=== PATIENT | female | born 1985 | race Caucasian/White ===

== ENCOUNTER 2017-06-25 12:55 | Emergency (ER) | END 2017-06-25 19:17 | disposition home or self-care (01) ==

== ENCOUNTER 2018-06-04 05:04 | Inpatient (IN) | payer MEDICAID ==
[~2018-06-04] VITALS: Ht 149.9 cm; Wt 78.2 kg
[2018-06-04 05:40] VITALS: BP 118/77; PULSE 80; RESP 18; Ht 149.9 cm; Wt 78.2 kg
[2018-06-04] MEDS ORDERED: LACTATED RINGER'S 1,000 ML IV SCH (06:38)
[2018-06-04] MEDS: LACTATED RINGER'S 1,000 ML IV SCH ×2 (06:50→16:48)
[2018-06-04] MEDS ORDERED: MAGNESIUM SULFATE 4 GM/100 ML 100 ML IVPB ONE (07:00)
--- NOTE | 2018-06-04 07:47 | TRIAGE ---
OB Triage Datetime Report Generated by CPN: 06/04/2018 07:47 Datetime: 06/04/2018 07:00 Stage of : OB Triage Labor Evaluation Frequency: x7 Monitor Mode: External Duration (sec)2399: 100-160 Quality: Mild Pattern: Normal: <= 5 Contractions in 10 Minutes Resting Tone [place]: Relaxed Heart Rate FHR Baseline Rate: 135 Monitor Mode: External US FHR Baseline Changes: No Baseline Change Variability: Moderate 6-25 bpm Accelerations: 15X15 Decelerations: None Category: Category I Datetime: 06/04/2018 06:37 Membrane Status: Ruptured Datetime: 06/04/2018 06:35 Stage of : OB Triage Datetime: 06/04/2018 06:28 Vaginal Exam Dilatation (cms): 1.5 Effacement (%): 50 Station: -3 Exam By: MARIE Reed Vaginal Bleeding: None Cervix, Consistency: Firm Cervix, Position: Posterior Datetime: 06/04/2018 06:00 Stage of : OB Triage Labor Evaluation Frequency: x3 Monitor Mode: External Duration (sec)2399: 110-190 Quality: Mild Pattern: Normal: <= 5 Contractions in 10 Minutes Resting Tone [place]: Relaxed Heart Rate FHR Baseline Rate: 135 Monitor Mode: External US Variability: Moderate 6-25 bpm Accelerations: 15X15 Decelerations: None Category: Category I Datetime: 06/04/2018 05:36 Stage of : OB Triage Assessment Type: Triage Maternal Assessment Level of Consciousness: Fully Conscious DTR's/Clonus: DTRs 2+; No Clonus Headache: Denies Blurred Vision: No Respiratory Effort: Unlabored; Regular Rhythm; Equal Expansion Breath Sounds, Left: Clear and Equal Breath Sounds, Right: Clear and Equal Nausea/Vomiting: Hx of Nausea/Vomiting (Annotations: Hx nausea. Denies at this time.) RUQ Epigastric Pain: Denies Lower Extremities Edema: None Degree: None Upper Extremities Edema: None Degree: None Facial Edema: None Temperature Route: Oral Fall Risk Assessment History of Falling: (0) No Secondary Diagnosis: (0) No Ambulatory Aid: (0) Bedrest/Nurse Assist IV Therapy: (0) No Gait: (0) Normal/Bedrest/Immobile Mental Status: (0) Oriented to Own Ability Fall Score: 0 Fall Risk Score Definition: No Risk: No action required Pain Assessment Pain Scale: 0 Pain Presence: None/Denies Pain Type: N/A Datetime: 06/04/2018 05:32 Time of Arrival: 06/04/2018 05:05 EGA: 32.6 Arrived By: Wheelchair Arrived From: Home Chief Complaint: SROM @0430 Movement: Present Contractions: Denies/Absent Rupture of Membranes: Ruptured Vaginal Bleeding: None Vaginal Discharge: Present Abdominal Trauma: Not Applicable Patient Complaints: Other Time Provider Notified: 06/04/2018 06:35 Provider Notified: Initial Plan: Michael MACIAS
[2018-06-04] MEDS: AMPICILLIN 2 GM/NS (PMX) 100 ML IVPB SCH ×3 (07:57→21:30)
[2018-06-04] MEDS ORDERED: PREN-93 PO (08:02)
[2018-06-04] MEDS: MAGNESIUM SULFATE 20 GM/500 ML 500 ML IV SCH ×2 (08:18→17:46)
[2018-06-04] MEDS: DEXAMETHASONE 4 MG/ML 5 ML INJ IM SCH ×2 (08:54→21:30)
[2018-06-04] MEDS: ERYTHROMYCIN BASE (EC) 250 MG TAB PO SCH ×3 (10:36→21:30)
[2018-06-04] MEDS ORDERED: ERYTHROMYCIN LACTOBIONATE 250 MG in SOD CHLORIDE 0.9% 100 ML IV SCH (12:00)
--- NOTE | 2018-06-04 17:11 | HP ---
Date/Time of Note Date/Time of Note DATE: 06/04/18 TIME: 17:00 OB - History Hx of Present Free Text/Dictation 33-year-old female 6 para 4 at 32 weeks and 5 days gestation admitted complaining of spontaneous rupture of membrane at 4:30 AM Chief Complaint: Spontaneous rupture of membrane Last Menstrual Period: Oct 17, 2017 Estimated Due Date: Jul 24, 2018 : 6 Para: 4 Spontaneous : 1 Care: Good Care Ultrasounds: Normal mid trimester US Obstetrical Complications: None Medical Complications: None Past Family/Social History * Past Medical, Surgical, Family and Obstetric Histories reviewed from chart. Blood Type: O+ Rubella: immune RPR/VDRL: Negative GBS Status: Unknown HBsAG: Negative OB Admission Exam Vital Signs Vital Signs Vital Signs Date Temp Pulse Resp B/P (MAP) Pulse Ox O2 O2 Flow FiO2 Time Delivery Rate 06/04/18 98.2 80 18 118/77 Room Air 05:40 (91) Physical Exam HEENT: WNL Heart: Rhythm Normal Lungs: Clear, Equal Abdomen: WNL Extremities: Normal Reflexes: Normal Cervical Dilatation: 1cm Effacement: 50% Station: -3 Membranes: Intact Amniotic Fluid: Clear Heart Rate: 150's Accelerations: Accelerations Present Decelerations: No Decelerations Varibility: Moderate Contractions on Admission: 6-10 Minutes Apart Last 72 hours Lab Results CBC & BMP 06/04/18 06:50 Liver Function Test 06/04/18 06:50 Alanine Aminotransferase (ALT/SGPT) 22 Albumin 3.5 Alkaline Phosphatase 214 H Aspartate Amino Transf (AST/SGOT) 22 Direct Bilirubin 0.00 Total Protein 7.2 Magnesium Level Test 06/04/18 12:03 Magnesium Level 4.9 H OB Assessment/Plan Reason for admission: labor, rupture of membranes Other plan: Patient was started on IV antibiotic Magnesium sulfate was started for neuro protection Steroids were also started ONIEL LEES MD Jun 04, 2018 17:10
[2018-06-05] MEDS: LACTATED RINGER'S 1,000 ML IV SCH ×4 (00:31→21:52)
[2018-06-05] MEDS: AMPICILLIN 2 GM/NS (PMX) 100 ML IVPB SCH ×5 (03:15→23:59)
[2018-06-05] MEDS: ERYTHROMYCIN BASE (EC) 250 MG TAB PO SCH ×5 (03:15→23:59)
[2018-06-05] MEDS: MAGNESIUM SULFATE 20 GM/500 ML 500 ML IV SCH ×3 (04:34→21:54)
[2018-06-05] MEDS: PRENATAL VITAMIN PO SCH (08:49)
[2018-06-05] MEDS: DEXAMETHASONE 4 MG/ML 5 ML INJ IM SCH ×2 (09:19→21:51)
--- NOTE | 2018-06-05 14:58 | PN ---
Date/Time of Note Date/Time of Note DATE: 06/05/18 TIME: 14:57 OB Subjective Subjective Subjective Patient feels the baby move Has no complaint of contractions OB Objective Objective Objective Vital signs stable General physical exam is normal and/or unchanged heart tones appeared reactive On electronic monitoring no uterine contractions seen OB Assessment/Plan Reason for admission: labor, rupture of membranes Other Assessment: spontaneous rupture of membrane at 33 weeks Other plan: Continue the current measures and consult perinatologist following day ONIEL LEES MD Jun 05, 2018 14:58
--- NOTE | 2018-06-05 15:14 | QN ---
Documentation Comment Neonatology consult Consult at the request of Dr. Isabel This mother is at 33 and 0/7 weeks of gestation presenting with without rupture membranes labor and spontaneous rupture of membranes. Mother is receiving betamethasone, magnesium sulfate tocolysis, and antibiotics. Estimated weight of the infant is 2410 g. I spoke to the mother in [place] regarding the risks of a infant born at 33 weeks of gestation including but not limited to the following. 1 respiratory there is a mild risk for this type distress syndrome or transient tachypnea and I discussed the use of oxygen and ventilatory support for both invasive and noninvasive. I also spoke about the risks of apnea pr ematurity and its treatment. 2. Cardiac spoke about the risk of hypertension the use of normal saline boluses or medications to support blood pressure. Also discussed the risks of a patent ductus arteriosus very limited as a problem in this particular age group and the use of medications for closure. 3. Spoke about the risk of infection especially with early rupture of membranes . Mother being on antibiotics makes this wrist slightly less but will need to be followed once the was delivered. 4. I spoke about the risk of jaundice of prematurity and the use of phototherapy as treatment 5. Spoke with the risks of anemia and the use of PRBC transfusions and their treatment. 6. I spoke about the risk of feeding difficulty uses gavage feedings and the possibility of parenteral nutrition support initially if the cannot be fed. 7. Spoke about the risks of interventricular hemorrhage. It is probably less than 1 2 5% for grade 3 or 4 IVH which goes along with long-term neurodevelopmental abnormalities. These infants generally do very well. 8. Spoke about the length of stay being approximately 4-6 weeks at this particular gestational age. Risk of morbidity and mortality are very low probably less than 1-3%. Wish to thank you for this consult and will be available for further consultation or attendance at delivery as necessary. If you have any questions please do not hesitate to contact the NICU at [phone] LUKAS CORCORAN MD Jun 05, 2018 15:14
[2018-06-06] MEDS: MAGNESIUM SULFATE 20 GM/500 ML 500 ML IV SCH ×2 (01:13→11:20)
[2018-06-06] MEDS: ERYTHROMYCIN BASE (EC) 250 MG TAB PO SCH ×3 (05:54→18:21)
[2018-06-06] MEDS: AMPICILLIN 2 GM/NS (PMX) 100 ML IVPB SCH ×3 (05:54→18:22)
[2018-06-06] MEDS: LACTATED RINGER'S 1,000 ML IV SCH ×2 (05:55→11:10)
[2018-06-06] MEDS: PRENATAL VITAMIN PO SCH (09:31)
--- NOTE | 2018-06-06 18:19 | PN ---
Date/Time of Note Date/Time of Note DATE: 06/06/18 TIME: 18:18 OB Subjective Subjective Subjective Currently has no complaint of uterine contractions OB Objective Objective Objective Vital signs stable and general physical exam is unchanged heart tones appeared reactive OB Assessment/Plan Reason for admission: labor, rupture of membranes Other Assessment: spontaneous rupture of membrane at 33 weeks Other plan: We will DC magnesium sulfate Continue to observe patient in house Consider active induction at 34 weeks ONIEL LEES MD Jun 06, 2018 18:18
[2018-06-07] MEDS ORDERED: LIDOCAINE 1% (MPF) 30 ML INJ INJ PRN
[2018-06-07] MEDS ORDERED: AMPICILLIN 2 GM/NS (PMX) 100 ML IV ONE
[2018-06-07] MEDS ORDERED: OXYTOCIN 30 UNITS/LR 500 ML IV SCH ×2
[2018-06-07] MEDS: LACTATED RINGER'S 1,000 ML IV SCH ×2 (00:07→02:40)
--- NOTE | 2018-06-07 00:37 | PREAC ---
Date/Time of Note Date/Time of Note DATE: 06/07/18 TIME: 00:36 Anesthesia Eval and Record Evaluation Time Pre-Procedure Interview DATE: 06/07/18 TIME: 00:36 Age 33 Sex female NPO: 8 hrs Preoperative diagnosis labor pain Planned procedure labor epidural Past Medical History Past Medical History: None Surgery & Anesthesia Issues No known issue Meds Anticoagulation: No Beta Reagna within 24 hr: No Reason Beta Reagan not given: Pt. not on B-Reagan Reported Medications Vit No.124/Iron/FA ( Vitamin Tablet) 1 Each Tablet, 1 EACH PO DAILY, TAB 06/04/18 Current Medications Lactated Ringer's 1,000 ml @ 125 mls/hr Q8H IV Last administered on 06/07/18at 00:07; Admin Dose 125 MLS/HR; Start 06/06/18 at 23:57 Ampicillin 100 ml @ 100 mls/hr ONCE ONCE IV Last administered on 06/07/18at 00:07; Admin Dose 100 MLS/HR; Start 06/07/18 at 00:00; Stop 06/07/18 at 00:59 Ampicillin 50 ml @ 100 mls/hr Q4H IV ; Start 06/07/18 at 04:00 Lidocaine (Xylocaine 1% (Mpf)) 30 ml ONCE PRN INJ .EPISIOTOMY; Start 06/07/18 at 00:00 Oxytocin/Lactated Ringer's 500 ml @ 500 mls/hr ONCE POST IV ; Start 06/07/18 at 00:00 Oxytocin/Lactated Ringer's 500 ml @ 125 mls/hr POST IV ; Start 06/07/18 at 00:00 Oxytocin/Lactated Ringer's 500 ml @ 0 mls/hr ONCE PRN IV .VAGINAL BLEEDING; Start 06/07/18 at 00:00 Methylergonovine Maleate (Methergine) 0.2 mg ONCE PRN IM .VAGINAL BLEEDING; Start 06/07/18 at 00:00 Carboprost Tromethamine (Hemabate) 250 mcg ONCE PRN IM .VAGINAL BLEEDING; Start 06/07/18 at 00:00 Misoprostol (Cytotec) 1,000 mcg ONCE PRN NE .VAGINAL BLEEDING; Start 06/07/18 at 00:00 Meds reviewed: Yes Allergies Coded Allergies: No Known Allergy (Unverified , 06/04/18) Allergies Reviewed: Yes Labs/Studies Labs Reviewed: Reviewed by anesthesiologist Result Diagram: 06/04/18 0650 06/04/18 0650 test: Positive Pre-procedure Exam Last vitals Vital Signs Date Temp Pulse Resp B/P (MAP) Pulse Ox O2 O2 Flow FiO2 Time Delivery Rate 06/04/18 98.2 80 18 118/77 Room Air 05:40 (91) Airway: Adequate mouth opening, Adequate thyromental dist Mallampati: Mallampati III Teeth: Normal Lung: Normal Heart: Normal ASA Physical Status ASA physical status: 2 Emergency: None Planned Anesthetic Neuraxial: Epidural Planned Pain Management Epidural, Parenteral pain med Pre-operative Attestations Prior to commencing anesthesia and surgery, the patient was re-evaluated, there was verification of: *The patient's identity *The results of appropriate recent lab work and preoperative vital signs *The above evaluation not changing prior to induction *Anesthetic plan, risk benefits, alternative and complications discussed with patient/family; questions answered; patient/family understands, accepts and wishes to proceed. ANDRES PRESLEY MD Jun 07, 2018 00:37
[2018-06-07] MEDS ORDERED: ONDANSETRON 4 MG INJ IV PRN (01:00)
[2018-06-07] MEDS ORDERED: NALOXONE (0.4 MG/ML) INJ IV PRN (01:00)
[2018-06-07] MEDS ORDERED: ZOLPIDEM 5 MG TAB PO PRN ×2 (01:00→10:00)
[2018-06-07] MEDS ORDERED: HYDROmorphONE 0.5 MG/0.5 ML SYG IV PRN ×2 (01:00)
[2018-06-07] MEDS ORDERED: DIPHENHYDRAMINE 50 MG INJ IV PRN (01:00)
[2018-06-07] MEDS ORDERED: FENTAnyl 2MCG/ML-ROPIV 0.2% 100 ML BAG EPI SCH (01:00)
[2018-06-07] MEDS ORDERED: KETOROLAC 30 MG INJ IV PRN (01:00)
--- NOTE | 2018-06-07 01:50 | PAC ---
Date/Time of Note Date/Time of Note DATE: 06/07/18 TIME: 01:50 Post-Anesthesia Notes Post-Anesthesia Note Last documented vital signs Vital Signs Date Temp Pulse Resp B/P (MAP) Pulse Ox O2 O2 Flow FiO2 Time Delivery Rate 06/04/18 98.2 80 18 118/77 Room Air 05:40 (91) Activity: WNL Respiratory function: WNL Cardiovascular function: WNL Mental status: Baseline Pain reasonably controlled: Yes Hydration appropriate: Yes Nausea/Vomiting absent: Yes ANDRES PRESLEY MD Jun 07, 2018 01:50
[2018-06-07] MEDS ORDERED: AMPICILLIN 1 GM/NS (PMX) 50 ML IV SCH (04:00)
--- NOTE | 2018-06-07 07:47 | LDN ---
Date/Time of Note Date/Time of Note DATE: 06/07/18 TIME: 07:39 Delivery Summary 33y.o SROM at 06/04/18 in PTL received Mg So4, betamethasone and ampicillin and EM of male infant [id number] without any foul odor over intact perineum with x1 nuchal cord which was relatively tight Weeks of Gestation [id number] Placenta Delivered: Spontaneously, Intact & Complete (placenta culture and se nt to pathology) Meconium: none Episiotomy: No Perineal laceration: 0 Anesthesia type: Epidural Estimated blood loss: 150 Sponge & Needle done & correct: Yes All needle counts correct: Yes Any foreign bodies felt in the: No Delivery Information Sex Infant Sex: male Apgars 1 Minute: 9 5 Minute: 9 Suctioning Nose & mouth suctioned at davon: Yes Delee suction performed: Yes Umbilical Cord Umbilical cord with: 3 Vessels Cord presentations: nuchal cord Nuchal cord present X: 1 Cord Blood was obtained: Yes Mother & Baby Disposition Disposition Mom & Baby to Maternity; Good: Yes Mom transferred to: Other Baby to NICU: No () INOCENTE EDWARDS MD Jun 07, 2018 07:47
[2018-06-07 10:00] VITALS: BP 108/63; PULSE 72; RESP 18
[2018-06-07] MEDS ORDERED: OXYTOCIN 30 UNITS/LR 500 ML IV PRN ×2 (10:00)
[2018-06-07] MEDS ORDERED: BENZOCAINE 20% 56 ML SPRAY TOP PRN (10:00)
[2018-06-07] MEDS ORDERED: WITCH HAZEL/GLYCERIN PAD PR PRN (10:00)
[2018-06-07] MEDS ORDERED: LANOLIN HPA 1 PKT TOP PRN (10:00)
[2018-06-07] MEDS ORDERED: CARBOPROST 250 MCG INJ IM PRN ×2 (10:00)
[2018-06-07] MEDS ORDERED: MISOPROSTOL 200 MCG TAB PR PRN ×2 (10:00)
[2018-06-07] MEDS ORDERED: OXYCODONE/ASPIRIN (4.88/325) TAB PO PRN ×2 (10:00)
[2018-06-07] MEDS ORDERED: METHYLERGONOVINE 0.2 MG INJ IM PRN ×2 (10:00)
[2018-06-07] MEDS: IBUPROFEN 600 MG TAB PO SCH ×3 (11:13→23:40)
[2018-06-07 17:00] VITALS: BP 100/58; PULSE 68; RESP 18
[2018-06-07] MEDS: CEPHALEXIN 500 MG CAP PO SCH ×2 (17:15→23:40)
[2018-06-07 19:30] VITALS: BP 111/56; PULSE 65; RESP 19
[2018-06-07] MEDS: SENNA/DOCUSATE NA (8.6MG/50MG) TAB PO SCH (21:00)
[2018-06-08] VITALS: BP 110/75; PULSE 75; RESP 19
[2018-06-08 04:00] VITALS: BP 117/60; PULSE 70; RESP 20
[2018-06-08] MEDS: CEPHALEXIN 500 MG CAP PO SCH ×3 (05:37→17:40)
[2018-06-08] MEDS: IBUPROFEN 600 MG TAB PO SCH ×3 (05:37→17:40)
[2018-06-08 08:00] VITALS: BP 97/64; PULSE 68; RESP 18
[2018-06-08] MEDS: SENNA/DOCUSATE NA (8.6MG/50MG) TAB PO SCH (09:11)
--- NOTE | 2018-06-08 15:46 | DS ---
Date/Time of Note Date/Time of Note Home today or next DATE: 06/08/18 TIME: 15:45 Obstetrical Discharge Record Final Diagnosis Final Diagnosis: delivered Other Final Diagnosis Spontaneous rupture of membrane at 32+ week Status post vaginal delivery at 33+ Vaginal Delivery Obstetrical Delivery: Spontaneous Complications Labor ( spontaneous rupture of membrane) Tocolytics: Magnesium Sulfate Condition on Discharge Physical Assessment Last Vitals: See nurse's notes Voiding: Yes Bowel Movement: Yes Breast: Soft, non-tender, Filling Fundus: Firm Abdomen and Incision: Abdomen is soft with present bowel sounds and fundus is firm Episiotomy: Not applicable Calf Tenderness: No Patient Condition: Good ONIEL LEES MD Jun 08, 2018 15:46
--- NOTE | 2018-06-08 15:50 | PD.PPDC ---
FACILITIES MAINTENANCE TECHNICIAN Discharge Instruction Provider Information Physician Information 33-year-old female admitted with spontaneous rupture of membrane at 32+ weeks and had vaginal delivery with a spontaneous labor Diagnosis [id number] Final Diagnosis: [id number] Status post vaginal delivery Condition [id number] Patient Condition: [id number] Good Diet [id number] Diet: [id number] Resume Regular Diet Activity/Restrictions [id number] Activity: [id number] Normal Activity May Shower [id number] Restrictions: [id number] Nothing in the Vagina [id number] Return to Work or School: [id number] Jul 29, 2018 Follow-up Follow-up with Physician: 2, 4, Week/Weeks (In clinic) Return to clinic for Iqbtn6Gl OB Instructions: Gdsum0k Breast Tenderness Depression Comment: Pelvic rest for 6 weeks ONIEL LEES MD Jun 08, 2018 15:50
[2018-06-08] MEDS ORDERED: IBUP-1542 PO (15:51)
[2018-06-08 16:51] VITALS: BP 114/72; PULSE 69; RESP 18
[2018-06-09] MEDS ORDERED: DIPHTH/TET/ACEL PERTUSS (ADULT) 0.5 ML VIAL IM* ONE (09:00)
== END 2018-06-08 18:00 | disposition home or self-care (01) | DRG 807 ==
LOC: OBT 05:04 → L-D 06:12 → OBT 06:35 → L-D 07:33 → PP1 06-07 09:33
PROVIDERS: ADMIT Obstetrics & Gynecology; ATTEND Obstetrics & Gynecology
PROC: 10E0XZZ Delivery of Products of Conception, External Approach (ICD-10-PCS; principal; 2018-06-07)
DX: O60.14X0 Preterm labor third trimester with preterm delivery third trimester, not applicable or unspecified (principal); Z37.0 Single live birth; O42.113 Preterm premature rupture of membranes, onset of labor more than 24 hours following rupture, third trimester; O69.1XX0 Labor and delivery complicated by cord around neck, with compression, not applicable or unspecified; Z3A.33 33 weeks gestation of pregnancy
CPT/HCPCS: 36415; 62319; 76815; 76818; 80053; 81001; 83735; 84112; 85025; 85610; 85730; 86592; 86850; 86900; 86901; 87070; 87086; 87340; 88307; 90686; 99464; G0463; J0290; J1100; J1364; J2590; J3010; J3475; J7120